=== PATIENT | female | born 1960 | race Caucasian/White ===

== ENCOUNTER 2018-07-22 04:11 | Emergency (ER) | payer OTHER ==
[~2018-07-22] VITALS: Ht 180.3 cm; Wt 61.2 kg
[~2018-07-22 04:11] MED LIST: CYCL10 PO; OXYACE7.5T PO; RXOXYACE PO
[2018-07-22] MEDS ORDERED: ALEVE (04:42)
[2018-07-22] MEDS ORDERED: CALCIUM (04:42)
[2018-07-22 05:04] LABS: Source, Urine Clean Catch
[2018-07-22 05:14] LABS: Bilirubin, Urine Neg (Neg); Blood, Urine 5+ (Neg); Glucose Qualitative, Urine Neg (Neg); Ketones, Urine 1+ (Neg); Leukocyte Esterase, Urine 3+ (Neg); Nitrite, Urine Pos (Neg); Protein, Urine 3+ (Neg); Urobilinogen, Urine NORM (Normal)
[2018-07-22 05:20] LABS: Color, Urine Yellow (P-Yellow)
[2018-07-22 05:21] LABS: Appearance, Urine Cloudy (Clear)
[2018-07-22 05:24] LABS: White Blood Cells, Urine TNTC /hpf (0-5)
[2018-07-22 05:26] LABS: Bacteria Many /hpf; Red Blood Cells, Urine TNTC /hpf (0-2); Squamous Epithelial Cells Not Seen /hpf (Few)
[2018-07-22 05:27] LABS: Transitional Epithelial Cells Rare /hpf (0-Rare)
[2018-07-22] MEDS ORDERED: CEPH500 PO (05:40)
== END 2018-07-22 05:48 | disposition home or self-care (01) ==
LOC: ER 04:11
PROVIDERS: Emergency Medicine
DX: N39.0 Urinary tract infection, site not specified (principal); Z79.899 Other long term (current) drug therapy
CPT/HCPCS: 81001; 87077; 87086; 87186; 99283

== ENCOUNTER → 2018-08-01 | Outpatient (CLI) | payer OTHER ==
[~2018-08-01] MED LIST changes: +ALEVE; +CALCIUM; +CEPH500 PO
== END | disposition home or self-care (01) ==
LOC: LAB SHORT 15:44 → LAB 15:44
DX: N39.0 Urinary tract infection, site not specified (principal)
CPT/HCPCS: 87077; 87086; 87186

== ENCOUNTER 2021-01-28 08:31 | Day surgery (SDC) | payer OTHER ==
[~2021-01-28] VITALS: Ht 167.6 cm; Wt 98.6 kg
[~2021-01-28 08:31] MED LIST changes: +CALCIUM 500 +1 EAC4 PO; +FAMO10 PO
[2021-01-28] MEDS ORDERED: ASPI81CH (08:48)
[2021-01-28] MEDS ORDERED: EXTRA PAIN REL1 EAC2 (09:00)
== END 2021-01-28 10:51 | disposition home or self-care (01) ==
LOC: ORSCSDS 08:31
PROVIDERS: Internal Medicine Gastroenterology
PROC: 0DBH8ZX Excision of Cecum, Via Natural or Artificial Opening Endoscopic, Diagnostic (ICD-10-PCS; principal; 2021-01-28 09:45)
PROC: 0DBK8ZX Excision of Ascending Colon, Via Natural or Artificial Opening Endoscopic, Diagnostic (ICD-10-PCS; principal; 2021-01-28 09:45)
DX: Z12.11 Encounter for screening for malignant neoplasm of colon (principal); D12.0 Benign neoplasm of cecum; D12.2 Benign neoplasm of ascending colon; Z80.0 Family history of malignant neoplasm of digestive organs; K57.30 Diverticulosis of large intestine without perforation or abscess without bleeding
CPT/HCPCS: 88305; J2704; J7120

== ENCOUNTER → 2021-11-04 | Outpatient (CLI) | payer OTHER | END | disposition home or self-care (01) | LOC: LAB 16:39 | DX: Z12.4 Encounter for screening for malignant neoplasm of cervix (principal); Z91.89 Other specified personal risk factors, not elsewhere classified ==

== ENCOUNTER → 2022-11-24 | Outpatient (CLI) | payer OTHER ==
[~2022-11-24] MED LIST changes: +ASPI81CH; +EXTRA PAIN REL1 EAC2
[2022-11-27 15:09] LABS: HPV 16 Negative (Negative); HPV 18 Negative (Negative); HPV OTHER HR TYPES Negative (Negative)
== END ==
LOC: LAB SHORT 07:16 → LAB 07:16
PROVIDERS: Student in an Organized Health Care Education/Training Program
DX: Z12.4 Encounter for screening for malignant neoplasm of cervix (principal); Z91.89 Other specified personal risk factors, not elsewhere classified
CPT/HCPCS: 87624; G0145

== ENCOUNTER → 2024-06-01 | Outpatient (CLI) | payer OTHER ==
[2024-06-07 06:46] LABS: HPV HIGH RISK BY TMA Not Detected; HPV SOURCE Cervical
== END ==
LOC: LAB 09:35 → LAB SHORT 09:35
PROVIDERS: Student in an Organized Health Care Education/Training Program
DX: Z12.4 Encounter for screening for malignant neoplasm of cervix (principal); Z91.89 Other specified personal risk factors, not elsewhere classified
CPT/HCPCS: 87624; G0123